=== PATIENT | female | born 1965 | race Native Hawaiian/Other Pacific Islander ===

== ENCOUNTER 2018-01-31 10:41 | Emergency (ER) | payer OTHER ==
[~2018-01-31] VITALS: Ht 157.5 cm; Wt 98.4 kg
[2018-01-31 15:00] VITALS: BP 128/78; TEMP 98
== END 2018-01-31 15:00 | disposition home or self-care (01) ==
LOC: ED 10:41
PROC: 2W38X1Z Immobilization of Right Upper Extremity using Splint (ICD-10-PCS; principal; 2018-01-31)
DX: S42.434D Nondisplaced fracture (avulsion) of lateral epicondyle of right humerus, subsequent encounter for fracture with routine healing (principal)
CPT/HCPCS: 99282